=== PATIENT | female | born 1960 | race American Indian/Alaskan Native ===

== ENCOUNTER 2018-05-22 03:01 | Emergency (ER) | payer MEDICAID ==
[2018-05-22 08:55] VITALS: BP 125/78
--- NOTE | 2018-05-22 08:57 | Emergency Department Report ---
ED Rash HPI - HPI Chief Complaint: Skin Rash Stated Complaint: POSS ALLERGIC REACTION Time Seen by Provider: 05/22/18 08:20 Duration: 5 Days (this has been ongoing on and off patient reports that sometimes she gets generalized rash with itching and burning in) Location: Head, Upper Extremities Suspected Cause: Unknown (she reports that she thinks she just bought a new hair product and she is said and immediately she started burning in her scalp which she has stopped using since.) Rash Symptoms: Yes Itching (generalized itching and burning), No Facial Swelling , No Tongue/Oral Swelling, No Breathing Difficulties, No Choking Sensation, No Wheezing/Dyspnea, No Peeling, No Blistering, No Fever, No Lightheaded, No Malaise, No Myalgias Severity: mild (2/10) Other History: This is a 57-year-old female who reports that she is going through menopause and since she turned 50+ she has been having itching and burning all over. She says she just relocated from [facility] and she thinks because she is going through menopause she is having all this physician and burning. She reports that she used a new hair products and she instantly started burning in her scalp which when all over her body. She reported she had some rash and [facility] her [facility] cream which helped. Patient is not sure what she is allergic to because she said prior to this she was also having burning sensation all over her body. She denies any pain. Itching is mild and burning sensation comes and goes. She says she is here for a checkup just some blood work done and interestingly notes cause another burning all over. Patient does have access to primary care but she does not have a primary care physician. Denies any nausea vomiting, shortness of breath, chest pain, dizziness, cough congestion or any rash on her body at present. ED Review of Systems ROS: Stated complaint: POSS ALLERGIC REACTION Other details as noted in HPI Constitutional: denies: chills, fever Eyes: denies: eye pain, eye discharge, vision change ENT: denies: ear pain, throat pain, congestion Respiratory: denies: cough, shortness of breath, wheezing Cardiovascular: denies: chest pain, palpitations, edema, syncope Gastrointestinal: denies: abdominal pain, nausea, vomiting, diarrhea Genitourinary: denies: urgency, dysuria, hematuria, discharge Musculoskeletal: denies: back pain, joint swelling, arthralgia Skin: pruritus, other (burning sensation all over body). denies: rash, lesions Neurological: denies: headache, weakness, numbness, paresthesias, confusion, abnormal gait, vertigo ED Past Medical Hx - Past Medical History Previous Medical History?: Yes Additional medical history: Schizophrenia - Surgical History Past Surgical History?: No - Family History Family history: hypertension - Social History Smoking Status: Never Smoker Substance Use Type: None Rash Exam - Exam General: Vital signs noted. No distress. Alert and acting appropriately. This is a 57-year-old female well-nourished well-developed in no acute distress. HEENT: No Periorbital Edema, No Conjuctival Injection, No Chemosis, No Perioral Edema, No Tongue Edema, No Uvular Edema, No Compromised Airway, No Drooling Lungs: Yes Good Air Exchange, No Wheezes, No Ronchi, No Stridor, No Cough, No Labored Respirations, No Retractions, No Use of Accessory Muscles, No Other Abnormal Lung Sounds Heart: Yes Regular (S1, S2. Regular rate and rhythm), No Murmur Skin: No Urticarial Rash, No Maculopapular Rash, No Morbilliform rash, No Bulla( e), No Excoriations, No Weeping, No Tenderness, No Erythema, No Edema, No Encrustations, No Other Other: Positive: Abdomen Normal, Neurologic Normal, Musculoskeletal Normal ED Course Vital Signs 05/22/18 05/22/18 03:06 08:55 Temperature 98.6 F 98.5 F Pulse Rate 65 57 L Respiratory 16 18 Rate Blood Pressure 138/86 Blood Pressure 125/78 [Right] O2 Sat by Pulse 98 100 Oximetry - Reevaluation(s) Reevaluation #1: 05/22/18 09:28 Patient given Toradol 60 mg IM because she said it helped her in the past. ED Medical Decision Making - Medical Decision Making 57-year-old patient presents to emergency room report a burning sensation all over her body since she started menopause. She is requesting and physical exam to include blood work to find him with Tylenol with her. Patient said she thinks is from her eating sugar, he is in different products and she is not sure what it is but she is then new hair products and she started burning in her scalp and she stopped using it in stock. She says sometimes that she drinks tea she started having a burning sensation. [facility] and they gave her some steroid and it helped a little but she says she is always burning all over. Patient was seen and examined myself. Her skin is intact with no rashes lesions or abscess, laceration. Skin is not tented the time of abdomen erythema. Other physical findings are normal. I discussed with patient that she go to [facility] or [facility] collector to get skin testing to see if she is allergic to anything and I also discussed with her that she needs to have a complete physical exam she needs to schedule an appointment with [facility] she has medical insurance to call today to schedule an appointment. I did gave her a brochure. I gave patient Decadron injection and she requested it and says that that helped her in the past. Generalized burning with itching-Decadron 10 mg and given in emergency room and she was released. Patient to follow up with primary care physician at [facility] for complete physical exam as she requested this and emergency room. I also discussed with her that she needs to discontinue the Prilosec that she use that started her scalp burning. I discussed with her that I will not give her any medication to go home with is she is a find out what she is allergic to use her fare collector or [facility] and she voiced understanding. Patient discharged home in stable condition her vital signs are stable, she is a febrile condition has better and she is not having any burning. Discharge home to follow up with primary care physician in 2 days. She voiced understanding. Critical care attestation.: If time is entered above; I have spent that time in minutes in the direct care of this critically ill patient, excluding procedure time. ED Disposition Clinical Impression: Burning sensation of skin, Itchy skin Disposition: [id number] TO HOME OR SELFCARE Is pt being admited?: No Does the pt Need Aspirin: No Condition: Stable Instructions: Skin Test Antigens, Multiple (On the skin), Itchy Skin (ED) Additional Instructions: Please follow up with fare collector and/or [facility] as discussed for skin testing Please [facility] with [facility] for complete physical exam Stop using product that caused Sears skin to burn Referrals: PRIMARY CARE, [Primary Care Provider] - 05/24/18 ROBERT DEJESUS MD [Staff Physician] - 05/24/18
[2018-05-22] MEDS ORDERED: TORADOL IM ONE (09:28)
== END 2018-05-22 09:42 | disposition home or self-care (01) ==
LOC: EDBD → ED 03:01
DX: R20.8 Other disturbances of skin sensation (principal); L29.9 Pruritus, unspecified; F20.9 Schizophrenia, unspecified
CPT/HCPCS: 96372; 99282; J1885